=== PATIENT | female | born 1955 | race Caucasian/White ===

== ENCOUNTER 2017-08-21 18:46 | Inpatient (IN) | payer BC ==
[~2017-08-21] VITALS: Ht 167.6 cm; Wt 97.6 kg
[~2017-08-21 18:46] MED LIST: ABILIFY20 M1; EFFEXOR-XR150 MG PO; HUMULIN R100 U/1 M1 SC; LEVEMIR100 U/M1 SC; PRINIVIL10 MG PO; WEL100; ZES10 PO
[2017-08-21 18:49] VITALS: Ht 167.6 cm; Wt 97.6 kg
[2017-08-21 19:41] LABS: microscopic required? YES; urine erythrocyte TRACE (NEGATIVE)
[2017-08-21 19:51] LABS: AMPHETAMINE QUAL UR NONE DETECTED (NEG <=1000)
[2017-08-21 20:11] LABS: CALCIUM 9.1 mg/dL (8.5-10.1); CARBON DIOXIDE 20.7 mmol/L (21-32); CHLORIDE SERUM 104 mmol/L (98-107); CREATININE SERUM 1.3 mg/dL (0.6-1.0); GFR1 44 mL/min; GLUCOSE SERUM 124 mg/dL (74-106); POTASSIUM SERUM 4.5 mmol/L (3.5-5.1); SODIUM SERUM 137 mmol/L (136-145)
[2017-08-21 20:14] LABS: BASOPHIL % 0.3 % (0-2); PLATELET COUNT 304 x10^3mcL (130-400)
[2017-08-21 20:15] LABS: RED CELL DISTRIBUTION WIDTH 15.6 % (11.5-14.5)
[2017-08-21 20:24] LABS: ALKALINE PHOSPHATASE 82 U/L (46-116); ALT/SGPT 58 U/L (14-59); AST/SGOT 44 U/L (15-37); BILIRUBIN TOTAL 0.31 mg/dL (0.20-1.00); TOTAL PROTEIN, SERUM 7.2 g/dL (6.4-8.2)
[2017-08-21 20:25] LABS: ALBUMIN 3.3 g/dL (3.4-5.0)
[2017-08-21] MEDS ORDERED: LISINOPRIL10 MG (21:05)
[2017-08-21] MEDS ORDERED: COR3 PO (21:05)
[2017-08-21] MEDS ORDERED: WELLBUTRIN SR200 MG (21:06)
[2017-08-21] MEDS ORDERED: LAM25 (21:06)
[2017-08-21] MEDS ORDERED: COUMADIN1 MG (21:06)
[2017-08-21] MEDS ORDERED: GEODON20 MG (21:06)
[2017-08-21] MEDS ORDERED: HUMI SC (21:17)
[2017-08-21 21:32] LABS: CHOLESTEROL/HDL RATIO 2.9; MAGNESIUM 2.3 mg/dL (1.8-2.4); PHOSPHOROUS 4.5 mg/dL (2.5-4.9)
[2017-08-21 21:41] LABS: T3 TOTAL 0.68 ng/mL
[2017-08-21 21:45] LABS: FREE T4 0.93 ng/dL (0.76-1.46); FREE THYROXINE INDEX 1.6 ug/dL (1.4-4.5); T4(THYROXINE) 4.9 ug/dL (4.7-13.3)
[2017-08-21] MEDS ORDERED: SIMVASTATIN40 M1 PO (22:09)
[2017-08-21] MEDS ORDERED: PRAZOSIN HYDROCH1 MG PO (22:09)
[2017-08-21 22:17] VITALS: BP 143/60
[2017-08-21] MEDS ORDERED: LAMOTRIGINE150 M1 PO (22:50)
[2017-08-21] MEDS ORDERED: LEVOTHYROXIN0.025 M2 PO (22:51)
[2017-08-22 03:13] LABS: BASOPHIL % 0.4 % (0-2); PLATELET COUNT 277 x10^3mcL (130-400)
[2017-08-22 03:19] LABS: RED CELL DISTRIBUTION WIDTH 16.3 % (11.5-14.5)
[2017-08-22 03:27] LABS: CALCIUM 8.6 mg/dL (8.5-10.1); CARBON DIOXIDE 25.3 mmol/L (21-32); CREATININE SERUM 1.2 mg/dL (0.6-1.0); PHOSPHOROUS 4.4 mg/dL (2.5-4.9); POTASSIUM SERUM 5.2 mmol/L (3.5-5.1)
[2017-08-22 06:08] VITALS: BP 151/54
[2017-08-22 06:10] VITALS: BP 135/77
[2017-08-22 06:12] VITALS: BP 142/53
[2017-08-22 09:31] VITALS: BP 148/53
[2017-08-22 16:05] VITALS: BP 123/76
[2017-08-22 19:10] VITALS: BP 114/43
[2017-08-23 05:54] LABS: BASOPHIL % 0.5 % (0-2); PLATELET COUNT 296 x10^3mcL (130-400)
[2017-08-23 05:57] VITALS: BP 130/55
[2017-08-23 06:18] LABS: RED CELL DISTRIBUTION WIDTH 16.1 % (11.5-14.5)
[2017-08-23 06:23] LABS: CALCIUM 8.5 mg/dL (8.5-10.1); CARBON DIOXIDE 23.8 mmol/L (21-32); CREATININE SERUM 1.1 mg/dL (0.6-1.0); MAGNESIUM 1.9 mg/dL (1.8-2.4); PHOSPHOROUS 3.8 mg/dL (2.5-4.9)
[2017-08-23 06:30] LABS: POTASSIUM SERUM 5.6 mmol/L (3.5-5.1)
[2017-08-23 09:24] VITALS: BP 127/49
[2017-08-23 12:49] LABS: CALCIUM 8.8 mg/dL (8.5-10.1); CARBON DIOXIDE 25.2 mmol/L (21-32); CREATININE SERUM 1.1 mg/dL (0.6-1.0); POTASSIUM SERUM 4.9 mmol/L (3.5-5.1)
[2017-08-23 13:49] VITALS: BP 155/63
[2017-08-23 19:46] VITALS: BP 138/55
[2017-08-24 06:18] VITALS: BP 121/50
[2017-08-24 07:41] LABS: BASOPHIL % 0.6 % (0-2); PLATELET COUNT 282 x10^3mcL (130-400)
[2017-08-24 07:43] LABS: CALCIUM 8.4 mg/dL (8.5-10.1); CARBON DIOXIDE 25.7 mmol/L (21-32); CHLORIDE SERUM 105 mmol/L (98-107); CREATININE SERUM 0.9 mg/dL (0.6-1.0); GFR1 > 60 mL/min; GLUCOSE SERUM 85 mg/dL (74-106); PHOSPHOROUS 3.8 mg/dL (2.5-4.9); POTASSIUM SERUM 4.4 mmol/L (3.5-5.1); SODIUM SERUM 139 mmol/L (136-145)
[2017-08-24 07:47] LABS: RED CELL DISTRIBUTION WIDTH 15.9 % (11.5-14.5)
[2017-08-24 08:49] VITALS: BP 151/65
[2017-08-24 11:29] VITALS: BP 121/50
[2017-08-24] MEDS ORDERED: LEVEMIR100 U/M1 SC (11:45)
[2017-08-24] MEDS ORDERED: HUMULIN R100 U/1 M1 SC (11:45)
[2017-08-24] MEDS ORDERED: COUMADIN2 MG PO (11:46)
== END 2017-08-24 13:19 | DRG 917 ==
LOC: ED 18:46 → DU 20:26
PROVIDERS: Emergency Medicine; Family Medicine
DX: T38.3X2A Poisoning by insulin and oral hypoglycemic [antidiabetic] drugs, intentional self-harm, initial encounter (principal); N17.0 Acute kidney failure with tubular necrosis; F31.30 Bipolar disorder, current episode depressed, mild or moderate severity, unspecified; E44.0 Moderate protein-calorie malnutrition; N39.0 Urinary tract infection, site not specified; E03.9 Hypothyroidism, unspecified; I44.7 Left bundle-branch block, unspecified; E78.5 Hyperlipidemia, unspecified; I25.10 Atherosclerotic heart disease of native coronary artery without angina pectoris; I50.9 Heart failure, unspecified; E10.9 Type 1 diabetes mellitus without complications; E10.65 Type 1 diabetes mellitus with hyperglycemia; E66.9 Obesity, unspecified; M19.012 Primary osteoarthritis, left shoulder; M19.011 Primary osteoarthritis, right shoulder; G90.8 Other disorders of autonomic nervous system; I25.2 Old myocardial infarction; Z86.73 Personal history of transient ischemic attack (TIA), and cerebral infarction without residual deficits; Y92.89 Other specified places as the place of occurrence of the external cause; Z90.49 Acquired absence of other specified parts of digestive tract; Z90.10 Acquired absence of unspecified breast and nipple; Z68.35 Body mass index [BMI] 35.0-35.9, adult
CPT/HCPCS: 82962; 83880; 84439; 87046; 87046-59; G0480; J0696; J1815; J3490; J7030; Q0092